=== PATIENT | female | born 1925 | race Caucasian/White ===

== ENCOUNTER 2016-08-10 10:31 | Inpatient (IN) | payer MEDICARE, BC ==
[~2016-08-10] VITALS: Ht 160 cm; Wt 61.3 kg
[~2016-08-10 10:31] MED LIST: CIPRO 250MG TA250 MG PO; COZAAR 50MG50 MG/TAB PO; FLAGYL 250250 MG/TAB PO; LEVOXYL0.088 MG PO; LEXAPRO 10MG10 MG PO; LIPITOR 10MG10 MG PO; LOZOL1.25 MG PO; NORCO 325 MG-51 TAB PO; VITAMIN D1000 IU PO; ZOFRAN ODT4 MG PO
[2016-08-10 14:19] VITALS: BP 164/55; PULSE 71; TEMP 97.9
[2016-08-10 16:02] LABS: BASO % 0.2 % (0.0-2.0); EOS % 0.1 % (0-4.0); GRAN # 8.7 (1.4-6.5); GRAN % 87.8 % (42.2-75.2); HEMOGLOBIN 12.2 g/dl (12.5-16.0); LYMPH # 0.7 (1.2-3.4); LYMPH % 6.5 % (20.0-51.0); MEAN CELL VOLUME 94 fl (80.0-100.0); MEAN CORPUSCULAR HEMOGLOBIN 31 pg (27.0-31.0); MEAN CORPUSCULAR HGB CONC 34 g/dl (33.0-37.0); MEAN PLATELET VOLUME 9.9 fl (7.4-10.4); MONO # 0.5 (0.1-0.6); MONO % 4.9 % (1.7-9.3); PLATELET COUNT 136 K/mm3 (130-400); RED BLOOD COUNT 3.88 M/mm3 (4.10-5.30); REDCELL DISTRIBUTION WIDTH-CV 13.1 % (11.5-14.5)
[2016-08-10 16:06] LABS: HEMATOCRIT 36.4 % (37.0-47.0)
[2016-08-10 16:12] LABS: ADJUSTED CALCIUM 9.7 mg/dL (8.4-10.2); ALBUMIN 3.9 gm/dL (3.5-5.0); BILIRUBIN,TOTAL 0.9 mg/dL (0.0-1.0); CALCIUM 9.6 mg/dL (8.4-10.2); CREATININE, serum 0.84 mg/dL (0.52-1.25); POTASSIUM 4.3 mmol/L (3.4-5.0); TOTAL PROTEIN 7.4 gm/dL (6.4-8.2)
[2016-08-10 17:10] VITALS: BP 109/47; PULSE 63; TEMP 97.9
[2016-08-10 21:10] VITALS: BP 133/46; PULSE 60; TEMP 98
[2016-08-11 05:59] VITALS: BP 125/50; PULSE 75; TEMP 98
[2016-08-11 09:22] VITALS: BP 140/60; PULSE 66
[2016-08-11 12:21] LABS: INR 1.1 (0.8-3.0)
[2016-08-11 14:16] VITALS: BP 149/58; PULSE 62; TEMP 98.7
[2016-08-11 17:34] VITALS: BP 143/59; PULSE 70; TEMP 97.9
[2016-08-11 21:19] VITALS: BP 158/53; PULSE 80; TEMP 97.4
[2016-08-12 02:05] VITALS: BP 140/63; PULSE 61; TEMP 98.5
[2016-08-12 05:07] VITALS: BP 147/60; PULSE 81; TEMP 97.5
[2016-08-12 06:58] LABS: HEMATOCRIT 35.8 % (37.0-47.0); HEMOGLOBIN 12.1 g/dl (12.5-16.0); MEAN CELL VOLUME 93 fl (80.0-100.0); MEAN CORPUSCULAR HEMOGLOBIN 31 pg (27.0-31.0); MEAN CORPUSCULAR HGB CONC 34 g/dl (33.0-37.0); MEAN PLATELET VOLUME 10.3 fl (7.4-10.4); PLATELET COUNT 117 K/mm3 (130-400); RED BLOOD COUNT 3.85 M/mm3 (4.10-5.30); REDCELL DISTRIBUTION WIDTH-CV 13.1 % (11.5-14.5); WHITE BLOOD COUNT 6.5 K/mm3 (4.8-10.8)
[2016-08-12 07:11] LABS: CALCIUM 9.2 mg/dL (8.4-10.2); CREATININE, serum 0.79 mg/dL (0.52-1.25); POTASSIUM 4.3 mmol/L (3.4-5.0)
[2016-08-12 10:42] VITALS: BP 142/70; PULSE 63; TEMP 98
[2016-08-12 13:28] VITALS: BP 136/59; PULSE 75; TEMP 97.5
[2016-08-12] MEDS ORDERED: NORCO 325 MG-51 TAB PO (15:21)
[2016-08-12] MEDS ORDERED: CEPHALEXIN500 M1 PO (15:21)
[2016-08-12 17:41] VITALS: BP 113/57; PULSE 70; TEMP 97.7
[2016-08-12 21:30] VITALS: BP 117/59; PULSE 60; TEMP 97.1
[2016-08-13] VITALS (9 sets, daily range): BP systolic 91–215; BP diastolic 45–86; PULSE 62–75; TEMP 98.4–98.6
== END 2016-08-13 16:13 | DRG 517 ==
LOC: COL.ER 10:31 → SURG 13:00
PROVIDERS: Internal Medicine
PROC: 0PS43ZZ Reposition Thoracic Vertebra, Percutaneous Approach (ICD-10-PCS; principal; 2016-08-13)
PROC: 0PU43JZ Supplement Thoracic Vertebra with Synthetic Substitute, Percutaneous Approach (ICD-10-PCS; 2016-08-13)
DX: M80.88XA Other osteoporosis with current pathological fracture, vertebra(e), initial encounter for fracture (principal); M80.041 Age-related osteoporosis with current pathological fracture, right hand; I10 Essential (primary) hypertension; W00.0XXA Fall on same level due to ice and snow, initial encounter
CPT/HCPCS: 99223-AI; 99231-AI; 99233-AI; 99239; C1713; C1894; J0690; J1644; J2250; J2405; J3010